=== PATIENT | female | born 1965 | race Hispanic/Latino ===

== ENCOUNTER 2018-08-25 15:09 | Outpatient (CLI) | payer OTHER ==
--- NOTE | 2018-08-25 15:43 | CT ---
CT BRAIN NONCONTRAST: DATE: 08/25/2018. HISTORY: A 53-year-old female with dizziness, giddiness, and headache. FINDINGS: The ventricles are normal in size and configuration. There is no midline shift or any other mass eff ect. There is no evidence of acute intracranial hemorrhage, large cortical infarct, or extraaxial fl uid collection. The [place] matter /white matter differentiation is maintained. The calvarium is intac t. The tympanomastoid cavities, and the upper portions of the paranasal sinuses included in these im ages, are grossly clear. IMPRESSION: Normal. jn [] POS: [facility]
== END 2018-08-25 15:10 | disposition home or self-care (01) ==
LOC: BICCT 15:09
PROVIDERS: ATTEND Family Medicine
DX: R42 Dizziness and giddiness (principal)
CPT/HCPCS: 70450